=== PATIENT | female | born 1970 | race African-American/Black ===

== ENCOUNTER 2020-03-03 16:07 | Emergency (ER) | payer OTHER ==
[~2020-03-03] VITALS: Ht 152.4 cm; Wt 82.0 kg
[2020-03-03] MEDS ORDERED: ACETAMINOPHEN 325MG TABLET PO ONE (17:00)
[2020-03-03 18:00] VITALS: BP 128/88
== END 2020-03-03 18:00 | disposition home or self-care (01) ==
LOC: ER 16:07
DX: J02.9 Acute pharyngitis, unspecified (principal); K21.9 Gastro-esophageal reflux disease without esophagitis
CPT/HCPCS: 99283